=== PATIENT | female | born 1950 | race Caucasian/White ===

== ENCOUNTER → 2023-10-03 11:37 | Outpatient (REF) | payer OTHER, SELFPAY | LOC: DHCBC/DCA 11:37 | PROVIDERS: ATTENDING PHYSICIAN Nurse Practitioner; FAMILY PHYSICIAN Family Medicine | DX: I49.3 Ventricular premature depolarization (principal); R07.89 Other chest pain; I10 Essential (primary) hypertension | CPT/HCPCS: 78452; 93017; A9500 ==

== ENCOUNTER → 2023-10-05 11:15 | Outpatient (REF) | payer OTHER, SELFPAY | LOC: RCS 11:15 | PROVIDERS: ATTENDING PHYSICIAN Nurse Practitioner; FAMILY PHYSICIAN Family Medicine | DX: I49.3 Ventricular premature depolarization (principal); R07.89 Other chest pain; I10 Essential (primary) hypertension | CPT/HCPCS: 93306 ==

== ENCOUNTER → 2023-11-12 13:57 | Outpatient (REF) | payer OTHER, SELFPAY | LOC: HWRAD 13:57 | PROVIDERS: ATTENDING PHYSICIAN Obstetrics & Gynecology Gynecology; FAMILY PHYSICIAN Family Medicine | DX: Z12.31 Encounter for screening mammogram for malignant neoplasm of breast (principal); M81.0 Age-related osteoporosis without current pathological fracture | CPT/HCPCS: 77063; 77067; 77080 ==

== ENCOUNTER → 2024-11-28 09:28 | Outpatient (REF) | payer OTHER, SELFPAY | LOC: HWWDC 09:28 | PROVIDERS: ATTENDING PHYSICIAN Obstetrics & Gynecology Gynecology; FAMILY PHYSICIAN Family Medicine | DX: Z12.31 Encounter for screening mammogram for malignant neoplasm of breast (principal) | CPT/HCPCS: 77063; 77067 ==

== ENCOUNTER 2025-02-18 20:08 | Emergency (ER) | payer OTHER, SELFPAY ==
[2025-02-18 20:10] VITALS: BP 163/99
--- NOTE | 2025-02-18 21:43 | ED.MUSCINJ ---
HPI-Injury
General
Chief Complaint: Musculo-Skeletal Complaint
Source: patient
Exam Limitations: none
Time Seen by Provider: 02/18/25 21:16
Nursing documentation reviewed up to this point in time: agreed with
History of Present Illness-Injury
Initial Injury comments:
75-year-old female with history of HTN, HLD, presents for a left ankle injury from slipping on black ice in her driveway about 2-1/2 hours ago. She denies hitting her head or any other injury.
Past History
Past History
ED Past Medical History: HTN and Hypercholesterolemia
ED Past Surgical History: , Orthopedic and Other (Plan repair x 2)
Social History
Tobacco: Former smoker
Alcohol: Occasional
Personal:
Living: with family
Employment: Not employed
Review of Systems
Review of Systems
Allergies reviewed?: Yes
All Other Systems: ROS reviewed and negative except as documented in HPI and ROS
Musculoskeletal Injury Exam
Musculoskeletal Injury Exam
Left Lateral Ankle:
Pain with Movement?: Mild
Tender to palpation?: Moderate
Soft tissue swelling?: Mild
Strain- Sprain- Tear (Connective tissue injury)?: Moderate
Joint instability?: No
Malalignment/deformity?: No
Range of motion: Limited
Distal skin color and temperature: normal-warm & good color
Capillary Refill: normal
Normal distal neurovascular exam?: Yes
Phy Exam
Physical Exam
Physical Exam:
PHYSICAL EXAMINATION:
General: no apparent distress, not acutely ill
Neuro: alert and oriented.
Psychiatric: well kept. interactive and cooperative
Musculoskeletal: Moves with ease
Skin: Warm, pink.
Injury Course
Orders/Labs/Results
Orders:
Orders
02/18/25 20:12
Ankle, left 3 view CR [CR Ankle - Left Min 3 Views ] Urgent
Comment:
Reason For Exam: pain
02/18/25 21:42
Crutches-Treatment ONCE
Ortho Boot Left- Treatment ONCE
Short or tall?: Short
MDM/Problems Addressed
MDM/Problems Addressed:
75-year-old female with history of HTN, HLD, presents for a left ankle injury from slipping on black ice in her driveway about 2-1/2 hours ago. She denies hitting her head or any other injury.
X-ray of left ankle: Small ossific fragment along the lateral aspect of the calcaneus which likely represents a small avulsion fracture.
Ortho boot and crutches provided.
Patient has seen [facility] orthopedics in the past so referred there for follow-up
*Pulse Oximetry
SaO2: 99
Oxygen Mode of Delivery: Room air
Patient hypoxic: not evaluated
*Critical Care Note
Total Time (30-74mins, 75-104mins- exclusive of procedures): Not Applicable
ED Attending Note
-
Portions of this chart may have been created with voice recognition software.� Occasional wrong word or��sound alike� substitutions may have occurred due to the inherent limitations of voice recognition software.
Discharge Plan
Departure
Patient Disposition: Home (Routine Discharge)
Date of Disposition: 02/18/25
Time of Disposition: 21:49
Patient with high blood pressure during this ER visit?: No
Condition: Good
Discharge Problem:
Fracture of left ankle, Fall from slipping on ice
Instructions: Ankle Fracture (DC), Using Cold for Pain
Prescriptions:
No Action
Vitamin D3
1 tab PO DAILY
calcium
1 tab PO BID
atorvastatin 10 mg Tablet
10 mg PO DAILY
omeprazole 20 mg Capsule,Delayed Release(Dr/Ec)
20 mg PO DAILY
metoprolol succinate 100 mg Tablet Extended Release 24 Hr
100 mg PO BID
Referrals:
Ja Lynn MD [Active, Orthopedics] - Next open appointment
Radhames Solomon MD [Family Provider, Family Practice]
Activity Restrictions/Additional Instructions:
As we discussed, wear the orthopedic boot at all times when up and around
Use your crutches as needed
Tylenol or ibuprofen as needed for pain
When you are resting over the next they are to you may apply cool compresses 20 minutes off-and-on throughout the day, minimize swelling
Follow orthopedic doctors office tomorrow make next available appointment. Visual acuity no problem*
Interventions
Interventions:
*General Assessment Last Done: 02/18/25 21:41
*Neglect/Abuse Screening Last Done: 02/18/25 20:10
*ED COVID-19 Vaccine History Last Done: 02/18/25 21:41
*ED Influenza Vaccine History Last Done: 02/18/25 21:41
[facility] Risk Assessment Tool Last Done: 02/18/25 21:41
*Risk Screen - Suicide (C-SSRS) Last Done: 02/18/25 20:10
*Nursing Disposition Last Done: 02/18/25 22:24
ED-Musculoskeletal Assessment Last Done: 02/18/25 21:43
Discharge Date and Time
Discharge Date/Time: 02/18/25 22:15
Print Language: DANISH
== END 2025-02-18 22:15 | disposition home or self-care (01) ==
LOC: EMR 20:08
PROVIDERS: EMERGENCY PHYSICIAN Emergency Medicine; FAMILY PHYSICIAN Family Medicine
DX: S82.892A Other fracture of left lower leg, initial encounter for closed fracture (principal); W00.0XXA Fall on same level due to ice and snow, initial encounter; Y92.008 Other place in unspecified non-institutional (private) residence as the place of occurrence of the external cause; I10 Essential (primary) hypertension; E78.00 Pure hypercholesterolemia, unspecified; Z87.891 Personal history of nicotine dependence
CPT/HCPCS: 99283; 73610